=== PATIENT | male | born 1955 | race Hispanic/Latino ===

== ENCOUNTER 2023-03-11 09:10 | Day surgery (SDC) | payer OTHER ==
[2023-03-11] VITALS (11 sets, daily range): BP systolic 110–130; BP diastolic 36–68; PULSE 61–74; RESP 15–17
[~2023-03-11] VITALS: Ht 167.6 cm; Wt 83.5 kg
[~2023-03-11 09:10] MED LIST: AMIO200T68 PO; ATOR40TA69 PO; CARV12.511 PO; EZET10TA48 PO; METH-387 PO; SACU1TAB4 PO; VITAMIN D PO
[2023-03-11] MEDS: 0.9%NACL 1000ML 1,000 ML IV ONE (10:28)
[2023-03-11] MEDS ORDERED: PROPOFOL 10 MG/ML 20ML VIAL IV ONE (12:09)
== END 2023-03-11 13:35 | disposition home or self-care (01) ==
LOC: ENDO 09:10 → DAH 09:10 → ENDO 13:35
PROVIDERS: ATTEND Internal Medicine Gastroenterology
DX: K92.1 Melena (principal); K63.5 Polyp of colon; K64.2 Third degree hemorrhoids; K64.4 Residual hemorrhoidal skin tags; I25.10 Atherosclerotic heart disease of native coronary artery without angina pectoris; I11.0 Hypertensive heart disease with heart failure; I50.9 Heart failure, unspecified; G47.30 Sleep apnea, unspecified; E78.5 Hyperlipidemia, unspecified; I25.2 Old myocardial infarction; F41.9 Anxiety disorder, unspecified; M19.90 Unspecified osteoarthritis, unspecified site; Z87.891 Personal history of nicotine dependence; Z98.890 Other specified postprocedural states; Z79.899 Other long term (current) drug therapy; Z79.01 Long term (current) use of anticoagulants
CPT/HCPCS: 45380; J7030; J2704; A4620; A4215 ×2; A4223; A7002; A4222; A4221; A4663; A4606; J3490